=== PATIENT | female | born 1975 | race Caucasian/White ===

== ENCOUNTER 2017-11-23 08:22 | Emergency (ER) | payer OTHER ==
[~2017-11-23] VITALS: Ht 172.7 cm; Wt 163.0 kg
[2017-11-23 08:30] VITALS: BP 153/91
--- NOTE | 2017-11-23 08:52 | NUR ---
42f bib son with 10/10 "sharp" left flank pain radiating to left side with hemauria. Pt denies any fevers or v/d. Pt is aox4 with steady gait. RR are even and unlabored. Pt positioned to comfort, bed down. NAd. er md fisher by bedside. Will continue to monitor.
[2017-11-23] MEDS ORDERED: cefTRIAXone 1,000 MG in LIDOCAINE MPF 1% - **ER/OR** 2.1 ML IM ONE (08:55)
[2017-11-23] MEDS ORDERED: KETOROLAC 60 MG/2 ML VIAL IM ONE (08:55)
[2017-11-23 09:37] VITALS: BP 148/89
--- NOTE | 2017-11-23 09:37 | NUR ---
Patient discharged with v/s stable. Written and verbal after care instructions given and explained. Patient alert, oriented and verbalized understanding of instructions. Ambulatory with steady gait. All questions addressed prior to discharge. ID band removed. Patient advised to follow up with PMD. Rx of Cephalexin, Naprosyn, [place] #5, and Zofran given. Patient educated on indication of medication including possible reaction and side effects. Opportunity to ask questions provided and answered.
[2017-11-23 09:42] LABS: APPEARANCE,URINE SL CLOUDY (CLEAR); BILIRUBIN,URINE 1+ (NEGATIVE); BLOOD, URINE 3+ (NEGATIVE); COLOR,URINE YELLOW (YELLOW); LEUKOCYTE ESTERASE ,URINE TRACE (NEGATIVE); NITRITE, URINE POSITIVE (NEGATIVE); UGLUCOSE NEGATIVE (NEGATIVE)
[2017-11-23 09:53] LABS: RBC,URINE 11-20 (MOD) /HPF (0-5)
[2017-11-23 09:54] LABS: CALCIUM OXALATE CRYSTALS,UR 0-10 /HPF (None Seen)
--- NOTE | 2017-11-25 17:10 | NUR ---
ADDENDUM: URINE CULTURE E.COLI. CALLED PATIENT AND JESSICAEENS FOR NEW PRESCRIPTION. ADVISED PATIENT TO STOP PREVIOUS ANTIBIOTIC AND START NEW PRES. LEVAQUIN 500MG 1 TAB. PO DAILYX7 DAYS WITH UNDERSTANDING. ALL INSTRUCTIONS PER DR. PATTEN
== END 2017-11-23 09:37 | disposition home or self-care (01) ==
LOC: MED 08:22
DX: N12 Tubulo-interstitial nephritis, not specified as acute or chronic (principal); R03.0 Elevated blood-pressure reading, without diagnosis of hypertension
CPT/HCPCS: 81001; 81025; 87086; 87186; 96372; 99284; J0696; J1885; J2001